=== PATIENT | male | born 1985 | race Caucasian/White ===

== ENCOUNTER 2021-10-21 07:40 | Emergency (ER) | payer OTHER ==
[~2021-10-21] VITALS: Ht 185.4 cm; Wt 122.5 kg
[2021-10-21] MEDS ORDERED: IBU600T PO (10:40)
[2021-10-21 13:35] VITALS: BP 122/78
== END 2021-10-21 13:43 | disposition home or self-care (01) ==
LOC: ER 07:40 → EDBD 07:40 → ER 13:42
DX: S60.212A Contusion of left wrist, initial encounter (principal); M79.10 Myalgia, unspecified site; R07.89 Other chest pain; V43.52XA Car driver injured in collision with other type car in traffic accident, initial encounter; Y93.89 Activity, other specified; Y92.89 Other specified places as the place of occurrence of the external cause; Y99.8 Other external cause status
CPT/HCPCS: 71046; 71250; 72100; 72125; 73110; 93005